=== PATIENT | female | born 1970 | race Caucasian/White ===

== ENCOUNTER 2016-06-23 08:53 | Day surgery (SDC) | payer MEDICARE, MEDICAID | END 2016-06-23 10:50 | disposition home or self-care (01) | DX: G89.29 Other chronic pain (principal); M96.1 Postlaminectomy syndrome, not elsewhere classified; J44.9 Chronic obstructive pulmonary disease, unspecified; F41.9 Anxiety disorder, unspecified; F32.9 Major depressive disorder, single episode, unspecified; Z79.899 Other long term (current) drug therapy; Z79.52 Long term (current) use of systemic steroids ==

== ENCOUNTER 2016-08-11 08:26 | Day surgery (SDC) | payer MEDICARE, MEDICAID ==
[~2016-08-11] VITALS: Ht 162.6 cm; Wt 102.6 kg
--- NOTE | 2016-08-13 08:22 | OR ---
ADMIT: 08/11/2016 RM/LOC: [facility] MR#: [id number] [address] [place] [facility] [place] [id number] Operative/Delivery Room Report SEX: F AGE: 46 : 1970 SURGERY DATE: 08/11/2016 SURGEON: Messi Givens MD PREOPERATIVE DIAGNOSES: 1. Lumbar post laminectomy syndrome. 2. Recurrent low back pain. POSTOPERATIVE DIAGNOSES: 1. Lumbar post laminectomy syndrome. 2. Recurrent low back pain. OPERATION: Two lead/16 contact spinal cord stimulator trial. ANESTHESIA: Local with sedation. COMPLICATIONS: None. BRIEF INDICATIONS: The patient is a pleasant female with history of chronic low back pain secondary to above-mentioned diagnosis, comes here for planned spinal cord stimulator trial. DESCRIPTION OF PROCEDURE: After informed consent was obtained, the patient was taken to the operative suite and placed in the prone position. Non- invasive anesthesia monitoring was placed. The skin over the lumbar spine was prepped and draped in a sterile fashion using ChloraPrep. A 14-gauge [employer] epidural needle was advanced through a stab incision through anesthetized skin. The needle was advanced at the low paramedian angle entering the lumbar spine at the L1-L2 level. The epidural needle was then advanced into L1-L2 interspace using continuous loss of resistance to saline, and once the loss of resistance was noted, the guidewire was introduced into the epidural space. Next, a [employer] spinal stimulator lead was placed into the epidural space and advanced with tips on top of T7 . Please see dimension in the chart for this. Next, the stimulation was undertaken by a [employer] paper sales representative. He got good coverage with the middle of the lead across the T8 vertebral body. This was covering the bilateral hip, thigh and back. Stylus was removed and the epidural needle was removed. Then, leads were taped into place and hooked into the electronic connector. The patient tolerated the procedure very well and gave good feedback. There were no complications. There was no blood loss. We will see the patient back in approximately three to four days for lead removal. Messi Givens MD/ louise JOB #: [id number] CC: Messi Givens, Attending Physician ADMIT: 08/11/2016 RM/LOC: [facility] MR#: [id number] [address] [address] [place] [address] Operative/Delivery Room Report SEX: F AGE: 46 : 1970 Other Physician, Family Physician
== END 2016-08-11 13:15 | disposition home or self-care (01) ==
LOC: SSS 08:26
PROC: 00HU3MZ Insertion of Neurostimulator Lead into Spinal Canal, Percutaneous Approach (ICD-10-PCS; principal; 2016-08-11)
DX: G89.29 Other chronic pain (principal); M96.1 Postlaminectomy syndrome, not elsewhere classified; I10 Essential (primary) hypertension; Z98.51 Tubal ligation status; Z98.890 Other specified postprocedural states